=== PATIENT | female | born 1950 | race Caucasian/White ===

== ENCOUNTER 2022-07-16 22:09 | Inpatient (IN) | payer OTHER, MEDICAID ==
[~2022-07-16] VITALS: Ht 162.6 cm; Wt 90.7 kg
[~2022-07-16 22:09] MED LIST: ATEN-60; CIME1TAB7; HYDR-1421; METF-370; RANI15SY
[2022-07-16 23:51] LABS: Basophils # (auto) 0.1 10 ^3/uL (0-0.2); Basophils % (auto) 1.1 % (0.0-2.0); Eosinophils # (auto) 0.2 10 ^3/uL (0-0.8); Eosinophils % (auto) 2.1 % (0.0-7.0); Hematocrit 33.2 % (36.0-46.0); Hemoglobin 10.3 g/dL (12.2-16.2); Lymphocytes # (auto) 1.9 10 ^3/uL (0.4-5.4); Mean Corpuscular Hemoglobin 27.1 pg (28.0-32.0); Mean Corpuscular Volume 87.3 fL (80.0-100.0); Monocytes # (auto) 0.4 10 ^3/uL (0-1.3); Monocytes % (auto) 5.5 % (0.0-12.0); Neutrophils # (auto) 5.3 10 ^3/uL (1.6-8.6); Neutrophils % (auto) 67.3 % (37.0-80.0); White Blood Cell 7.8 10^3/uL (4.4-10.8)
[2022-07-16 23:59] LABS: Albumin 3.3 g/dL (3.4-5.0); BUN/Creatinine Ratio 13.9; Calcium 9.6 mg/dL (8.5-10.1); Magnesium 2.2 mg/dL (1.6-2.6)
[2022-07-17 00:01] LABS: INR 0.94 (0.9-1.15); Partial Thromboplastin Time 30.5 sec (24.6-33.4)
[2022-07-17 00:02] LABS: Bilirubin, Total 0.2 mg/dL (0.2-1.0); Total Protein 7.1 g/dL (6.4-8.2)
[2022-07-17] MEDS ORDERED: ENOXAPARIN SOD 100 MG/1 ML SYRINGE SC ONE ×2 (00:45→05:30)
[2022-07-17] MEDS ORDERED: NITROGLYCERIN 0.4 MG SL TAB SL PRN (01:15)
[2022-07-17] MEDS ORDERED: ACETAMINOPHEN 325 MG TAB PO PRN (01:15)
[2022-07-17] MEDS ORDERED: DEXTROSE (50%) 50ML SYRG IV PRN (01:15)
[2022-07-17] MEDS ORDERED: MORPHINE SULFATE INJ 2 MG/ml SYRG IV PRN (01:15)
[2022-07-17 03:08] LABS: Urine Bacteria NONE SEEN /hpf (None Seen); Urine Blood Negative /uL (Negative); Urine Hyaline Cast FEW /lpf (0 - 2); Urine Specific Gravity 1.017 (1.001-1.035); Urine WBC 1 /hpf (0 - 5)
[2022-07-17] MEDS: InsuLIN REG 1unit/0.01ml Soln (100units/ml) SC SCH ×4 (06:00→23:37)
[2022-07-17] MEDS: ACCU-CHEK COMFORT CURVE STRIP VI SCH ×4 (06:07→23:36)
[2022-07-17] MEDS: LEVOTHYROXINE SODIUM 88 MCG TAB PO SCH (06:11)
[2022-07-17] MEDS: ASPirin 81 mg TAB PO SCH (08:27)
[2022-07-17] MEDS: TICAGRELOR 90 MG TAB PO SCH ×2 (08:27→21:26)
[2022-07-17] MEDS: METOPROLOL SUCCINATE XL 50 MG TAB PO SCH (08:28)
[2022-07-17] MEDS: LOSARTAN POTASSIUM 50 MG TAB PO SCH (08:28)
[2022-07-17] MEDS: PANTOPRAZOLE 40 MG TAB PO SCH (08:28)
[2022-07-17] MEDS: HYDROcodone-ACET 5/325MG TAB PO PRN ×2 (10:23→17:41)
[2022-07-17] MEDS ORDERED: amLODIPine BESYLATE 5 MG TAB PO ONE (11:45)
[2022-07-17] MEDS: MORPHINE SULFATE INJ 2 MG/ml SYRG IV PRN ×2 (14:39→21:38)
[2022-07-17] MEDS: ONDANSETRON HCL 4 MG/2 ML VIAL IV PRN ×2 (14:39→21:38)
[2022-07-17 17:00] VITALS: BP 100/43
[2022-07-17 20:00] VITALS: BP 108/31
[2022-07-17] MEDS: ATORVASTATIN 20 MG TAB PO SCH (21:26)
[2022-07-17 22:00] VITALS: BP 108/31
[2022-07-18 05:00] VITALS: BP 109/56
[2022-07-18] MEDS: ACCU-CHEK COMFORT CURVE STRIP VI SCH ×3 (05:47→18:23)
[2022-07-18] MEDS: InsuLIN REG 1unit/0.01ml Soln (100units/ml) SC SCH ×4 (05:48→23:15)
[2022-07-18 06:21] LABS: Basophils # (auto) 0.1 10 ^3/uL (0-0.2); Eosinophils # (auto) 0.4 10 ^3/uL (0-0.8); Lymphocytes # (auto) 2.6 10 ^3/uL (0.4-5.4); Neutrophils # (auto) 3.8 10 ^3/uL (1.6-8.6)
[2022-07-18 06:23] LABS: Basophils % (auto) 1.1 % (0.0-2.0); Eosinophils % (auto) 5.2 % (0.0-7.0); Hematocrit 29.6 % (36.0-46.0); Hemoglobin 9.4 g/dL (12.2-16.2); Lymphocytes % (auto) 35.1 % (10.0-50.0); Mean Corpuscular Hgb Conc. 31.9 g/dL (32.0-36.0); Mean Corpuscular Volume 84.6 fL (80.0-100.0); Monocytes # (auto) 0.6 10 ^3/uL (0-1.3); Monocytes % (auto) 7.4 % (0.0-12.0); Neutrophils % (auto) 51.2 % (37.0-80.0); Nucleated Red Blood Cells % 0.3 %; Red Cell Distribution Width 17.5 % (11.8-14.3); White Blood Cell 7.5 10^3/uL (4.4-10.8)
[2022-07-18 06:26] LABS: Potassium 4.5 mmol/L (3.5-5.1)
[2022-07-18 06:33] LABS: Albumin 3.2 g/dL (3.4-5.0); BUN/Creatinine Ratio 15.4; Bilirubin, Total 0.4 mg/dL (0.2-1.0); Calcium 9.9 mg/dL (8.5-10.1)
[2022-07-18] MEDS: LEVOTHYROXINE SODIUM 88 MCG TAB PO SCH (06:58)
[2022-07-18 08:00] VITALS: BP 135/58
[2022-07-18 09:00] VITALS: BP 136/58
[2022-07-18] MEDS: amLODIPine BESYLATE 5 MG TAB PO SCH (09:12)
[2022-07-18] MEDS: LOSARTAN POTASSIUM 50 MG TAB PO SCH (09:12)
[2022-07-18] MEDS: TICAGRELOR 90 MG TAB PO SCH ×2 (09:12→23:56)
[2022-07-18] MEDS: METOPROLOL SUCCINATE XL 50 MG TAB PO SCH (09:13)
[2022-07-18] MEDS: PANTOPRAZOLE 40 MG TAB PO SCH (09:13)
[2022-07-18] MEDS: MORPHINE SULFATE INJ 2 MG/ml SYRG IV PRN (09:19)
[2022-07-18] MEDS: ASPirin 81 mg TAB PO SCH (10:00)
[2022-07-18 13:00] VITALS: BP 99/59
[2022-07-18] MEDS ORDERED: CHOL20007 OR (14:58)
[2022-07-18] MEDS ORDERED: LEVO88TA4 PO (14:58)
[2022-07-18] MEDS ORDERED: ASPI-543 PO (14:58)
[2022-07-18] MEDS ORDERED: HYDR25TA4 PO (14:58)
[2022-07-18] MEDS ORDERED: GLIP5TAB12 PO (14:58)
[2022-07-18] MEDS ORDERED: AMIT1TAB34 PO (14:58)
[2022-07-18] MEDS ORDERED: LOSA-69 PO (14:58)
[2022-07-18] MEDS ORDERED: CEL100T PO (14:58)
[2022-07-18] MEDS ORDERED: ATOR-47 PO (14:58)
[2022-07-18] MEDS ORDERED: TICA90TA PO (14:58)
[2022-07-18] MEDS ORDERED: ALLO100T PO (14:58)
[2022-07-18] MEDS ORDERED: SITA50TA28 PO (14:58)
[2022-07-18] MEDS ORDERED: METO25TA93 PO (14:58)
[2022-07-18] MEDS ORDERED: MAGN400T40 PO (14:58)
[2022-07-18] MEDS ORDERED: OMEP20TA PO (14:58)
[2022-07-18 17:00] VITALS: BP 115/56
[2022-07-18 22:00] VITALS: BP 118/52
[2022-07-18] MEDS: HYDROcodone-ACET 5/325MG TAB PO PRN (23:32)
[2022-07-19] MEDS: ACCU-CHEK COMFORT CURVE STRIP VI SCH ×5 (00:12→22:18)
[2022-07-19] MEDS: ATORVASTATIN 20 MG TAB PO SCH ×2 (00:12→22:18)
[2022-07-19 05:00] VITALS: BP 104/56
[2022-07-19] MEDS: LEVOTHYROXINE SODIUM 88 MCG TAB PO SCH (06:20)
[2022-07-19] MEDS: HYDROcodone-ACET 5/325MG TAB PO PRN ×2 (06:20→22:18)
[2022-07-19] MEDS: InsuLIN REG 1unit/0.01ml Soln (100units/ml) SC SCH ×4 (06:38→22:29)
[2022-07-19 09:00] VITALS: BP 104/55
[2022-07-19] MEDS: ASPirin 81 mg TAB PO SCH (09:07)
[2022-07-19] MEDS: amLODIPine BESYLATE 5 MG TAB PO SCH (09:08)
[2022-07-19] MEDS: PANTOPRAZOLE 40 MG TAB PO SCH (09:08)
[2022-07-19] MEDS: LOSARTAN POTASSIUM 50 MG TAB PO SCH (09:09)
[2022-07-19] MEDS: METOPROLOL SUCCINATE XL 50 MG TAB PO SCH (09:09)
[2022-07-19] MEDS: TICAGRELOR 90 MG TAB PO SCH ×2 (10:00→22:17)
[2022-07-19 13:00] VITALS: BP 122/53
[2022-07-19 17:00] VITALS: BP 110/59
[2022-07-19 22:00] VITALS: BP 142/69
[2022-07-20 05:00] VITALS: BP 135/57
[2022-07-20] MEDS: InsuLIN REG 1unit/0.01ml Soln (100units/ml) SC SCH ×2 (06:00→11:48)
[2022-07-20] MEDS: LEVOTHYROXINE SODIUM 88 MCG TAB PO SCH (07:05)
[2022-07-20] MEDS: ACCU-CHEK COMFORT CURVE STRIP VI SCH ×2 (07:05→11:47)
[2022-07-20] MEDS: HYDROcodone-ACET 5/325MG TAB PO PRN (07:06)
[2022-07-20 09:00] VITALS: BP 127/70
[2022-07-20] MEDS: METOPROLOL SUCCINATE XL 50 MG TAB PO SCH (09:12)
[2022-07-20] MEDS: ASPirin 81 mg TAB PO SCH (09:13)
[2022-07-20] MEDS: LOSARTAN POTASSIUM 50 MG TAB PO SCH (09:13)
[2022-07-20] MEDS: PANTOPRAZOLE 40 MG TAB PO SCH (09:14)
[2022-07-20] MEDS: TICAGRELOR 90 MG TAB PO SCH (11:50)
[2022-07-20 13:00] VITALS: BP 138/62
[2022-07-20 16:04] VITALS: BP 138/62
== END 2022-07-20 16:32 | disposition home or self-care (01) | DRG 281 ==
LOC: ER 22:09 → EDBD 22:09 → EDSEX 22:09 → TELE 07-17 01:11 → TELE-EAST 07-17 17:12
PROVIDERS: ADMIT Nurse Practitioner; ATTEND Internal Medicine Nephrology
DX: I21.4 Non-ST elevation (NSTEMI) myocardial infarction (principal); E44.1 Mild protein-calorie malnutrition; E11.22 Type 2 diabetes mellitus with diabetic chronic kidney disease; E78.5 Hyperlipidemia, unspecified; F17.210 Nicotine dependence, cigarettes, uncomplicated; I12.9 Hypertensive chronic kidney disease with stage 1 through stage 4 chronic kidney disease, or unspecified chronic kidney disease; M19.90 Unspecified osteoarthritis, unspecified site; N18.9 Chronic kidney disease, unspecified; I95.9 Hypotension, unspecified; Z20.822 Contact with and (suspected) exposure to COVID-19; Z96.651 Presence of right artificial knee joint; I25.10 Atherosclerotic heart disease of native coronary artery without angina pectoris; S09.90XA Unspecified injury of head, initial encounter; W18.39XA Other fall on same level, initial encounter; Y93.89 Activity, other specified; Z90.710 Acquired absence of both cervix and uterus; Y92.89 Other specified places as the place of occurrence of the external cause; Y99.8 Other external cause status; Z68.31 Body mass index [BMI] 31.0-31.9, adult
CPT/HCPCS: 36415; 70450; 71045; 72170; 73560; 78582; 80053; 81001; 82962; 83735; 83880; 84484; 85025; 85379; 85610; 85730; 93005; 93306; 93970; 96372; 96374; 96375; 96376; 99291; G0378; J1815; J2405

== ENCOUNTER 2022-07-25 12:47 | Emergency (ER) | payer OTHER, MEDICAID ==
[~2022-07-25] VITALS: Ht 162.6 cm; Wt 75.0 kg
[~2022-07-25 12:47] MED LIST changes: +ALLO100T PO; +AMIT1TAB34 PO; +ASPI-543 PO; -ATEN-60; +ATOR-47 PO; +CHOL20007 OR; -CIME1TAB7; +GLIP5TAB12 PO; +LEVO88TA4 PO; +LOSA-69 PO; +METO25TA93 PO; +OMEP20TA PO; -RANI15SY; +SITA50TA28 PO; +TICA90TA PO
[2022-07-25 14:25] LABS: Albumin 3.8 g/dL (3.4-5.0); Calcium 9.5 mg/dL (8.5-10.1); Potassium 3.8 mmol/L (3.5-5.1)
[2022-07-25 14:30] LABS: Bilirubin, Total 0.4 mg/dL (0.2-1.0); Total Protein 7.2 g/dL (6.4-8.2)
[2022-07-25 14:42] LABS: Basophils # (auto) 0.1 10 ^3/uL (0-0.2); Basophils % (auto) 1.6 % (0.0-2.0); Eosinophils # (auto) 0.2 10 ^3/uL (0-0.8); Eosinophils % (auto) 2.7 % (0.0-7.0); Hematocrit 33.9 % (36.0-46.0); Hemoglobin 10.7 g/dL (12.2-16.2); Lymphocytes # (auto) 1.4 10 ^3/uL (0.4-5.4); Lymphocytes % (auto) 21.1 % (10.0-50.0); Mean Corpuscular Hemoglobin 26.4 pg (28.0-32.0); Mean Corpuscular Hgb Conc. 31.5 g/dL (32.0-36.0); Mean Corpuscular Volume 84.1 fL (80.0-100.0); Monocytes # (auto) 0.3 10 ^3/uL (0-1.3); Monocytes % (auto) 4.6 % (0.0-12.0); Neutrophils # (auto) 4.7 10 ^3/uL (1.6-8.6); Nucleated Red Blood Cells % 0.1 %; Red Blood Cells 4.03 10^6/uL (4.0-5.20); Red Cell Distribution Width 18.2 % (11.8-14.3); White Blood Cell 6.7 10^3/uL (4.4-10.8)
[2022-07-25 18:31] VITALS: BP 156/79
== END 2022-07-25 15:21 | disposition home or self-care (01) ==
LOC: EDBD 12:47 → EDUNIT# 12:47 → ER 12:47
DX: S09.8XXA Other specified injuries of head, initial encounter (principal); E11.9 Type 2 diabetes mellitus without complications; E78.5 Hyperlipidemia, unspecified; I10 Essential (primary) hypertension; Z90.710 Acquired absence of both cervix and uterus; W01.0XXA Fall on same level from slipping, tripping and stumbling without subsequent striking against object, initial encounter; Y93.89 Activity, other specified; Y92.090 Kitchen in other non-institutional residence as the place of occurrence of the external cause; Y99.8 Other external cause status
CPT/HCPCS: 36415; 70450; 70486; 80053; 84484; 85025; 93005

== ENCOUNTER 2023-05-09 16:36 | Emergency (ER) | payer OTHER, MEDICAID ==
[~2023-05-09] VITALS: Ht 162.6 cm; Wt 80.0 kg
[~2023-05-09 16:36] MED LIST changes: +AMIT10TA12 PO; -AMIT1TAB34 PO; -LOSA-69 PO; +LOSA50TA46 PO
[2023-05-09] MEDS ORDERED: SODIUM CHLORIDE 0.9% 500 ML IV ONE (17:30)
[2023-05-09 17:47] LABS: Basophils # (auto) 0.1 10 ^3/uL (0-0.2); Basophils % (auto) 0.9 % (0.0-2.0); Eosinophils # (auto) 0.2 10 ^3/uL (0-0.8); Eosinophils % (auto) 2.5 % (0.0-7.0); Hematocrit 31.9 % (36.0-46.0); Hemoglobin 10.4 g/dL (12.2-16.2); Lymphocytes # (auto) 2.3 10 ^3/uL (0.4-5.4); Mean Corpuscular Hemoglobin 27.7 pg (28.0-32.0); Mean Corpuscular Hgb Conc. 32.5 g/dL (32.0-36.0); Mean Corpuscular Volume 85.2 fL (80.0-100.0); Monocytes # (auto) 0.5 10 ^3/uL (0-1.3); Monocytes % (auto) 5.9 % (0.0-12.0); Neutrophils % (auto) 65.7 % (37.0-80.0); Red Blood Cells 3.75 10^6/uL (4.0-5.20); Red Cell Distribution Width 15.8 % (11.8-14.3); White Blood Cell 9.1 10^3/uL (4.4-10.8)
[2023-05-09 18:04] LABS: Albumin 3.4 g/dL (3.4-5.0); BUN/Creatinine Ratio 13.4 (10.0-20.0); Calcium 8.9 mg/dL (8.5-10.1); Potassium 3.6 mmol/L (3.5-5.1)
[2023-05-09 18:07] LABS: Bilirubin, Total 0.3 mg/dL (0.2-1.0)
[2023-05-09] MEDS ORDERED: LOPERAMIDE HCL 2 MG CAP/TAB PO ONE (19:30)
[2023-05-09] MEDS ORDERED: MECLIZINE HCL 25 MG TAB PO ONE (20:45)
[2023-05-09] MEDS ORDERED: metroNIDAZOLE 500 MG TAB PO ONE (20:45)
[2023-05-09] MEDS ORDERED: METR-344 PO (20:54)
[2023-05-09] MEDS ORDERED: LOP2C PO (20:54)
[2023-05-09] MEDS ORDERED: MECL1TAB42 PO (20:54)
[2023-05-09] MEDS ORDERED: SODIUM CHLORIDE 0.9% 1,000 ML IV ONE (21:00)
[2023-05-09 23:30] VITALS: BP 167/64
== END 2023-05-10 00:19 | disposition home or self-care (01) ==
LOC: ER 16:36 → EDBD 16:36 → ER 05-10 00:12
DX: E86.0 Dehydration (principal); R19.7 Diarrhea, unspecified; E11.9 Type 2 diabetes mellitus without complications; I10 Essential (primary) hypertension; K21.9 Gastro-esophageal reflux disease without esophagitis; Z95.5 Presence of coronary angioplasty implant and graft; Z90.710 Acquired absence of both cervix and uterus
CPT/HCPCS: 36415; 70450; 71045; 80053; 83880; 84484; 85025; 85610; 85730; 93005; 96360; 96361; 99285; J7030; J8597

== ENCOUNTER 2024-08-11 16:06 | Inpatient (IN) | payer OTHER, MEDICAID ==
[~2024-08-11] VITALS: Ht 162.6 cm; Wt 83.0 kg
[~2024-08-11 16:06] MED LIST changes: -GLIP5TAB12 PO; +GLIP5TAB21 PO; +LOPE2CAP16 PO; +LOSA-534 PO; -LOSA50TA46 PO; +MECL1TAB42 PO; +METR-344 PO
[2024-08-11 17:32] LABS: Basophils # (auto) 0.1 10 ^3/uL (0-0.2); Basophils % (auto) 1.5 % (0.0-2.0); Eosinophils # (auto) 0.3 10 ^3/uL (0-0.8); Eosinophils % (auto) 3.2 % (0.0-7.0); Hematocrit 36.6 % (36.0-46.0); Hemoglobin 12.1 g/dL (12.2-16.2); Lymphocytes # (auto) 1.7 10 ^3/uL (0.4-5.4); Lymphocytes % (auto) 18.7 % (10.0-50.0); Mean Corpuscular Hemoglobin 27.8 pg (28.0-32.0); Mean Corpuscular Hgb Conc. 33.1 g/dL (32.0-36.0); Mean Corpuscular Volume 83.9 fL (80.0-100.0); Monocytes # (auto) 0.4 10 ^3/uL (0-1.3); Monocytes % (auto) 4.8 % (0.0-12.0); Neutrophils # (auto) 6.6 10 ^3/uL (1.6-8.6); Neutrophils % (auto) 71.8 % (37.0-80.0); Nucleated Red Blood Cells % 0.1 %; Platelet Count (auto) 210 10^3/uL (140-450); Red Blood Cells 4.36 10^6/uL (4.0-5.20); Red Cell Distribution Width 15.3 % (11.8-14.3); White Blood Cell 9.1 10^3/uL (4.4-10.8)
[2024-08-11 17:50] LABS: Alanine Aminotransferase 16 U/L (7-40); Albumin 4.6 g/dL (3.2-4.8); Alkaline Phosphatase 123 U/L (46-116); Anion Gap 8 (5-15); Aspartate Aminotransferase 11 U/L (13-40); BUN/Creatinine Ratio 9.5 (10.0-20.0); Blood Urea Nitrogen 19 mg/dL (9-23); Calcium 9.8 mg/dL (8.7-10.4); Carbon Dioxide 28 mmol/L (20-30); Chloride 103 mmol/L (98-107); Glucose 201 mg/dL (74-106); Potassium 3.8 mmol/L (3.5-5.1); Sodium 139 mmol/L (136-145)
[2024-08-11 17:51] LABS: Bilirubin, Total 0.4 mg/dL (0.2-1.0); Total Protein 6.8 g/dL (5.7-8.2)
[2024-08-11 18:14] LABS: INR 1.05 (0.9-1.15); Partial Thromboplastin Time 26.8 SEC (24.5-34.5); Prothrombin Time 11.1 sec (9.3-11.8)
[2024-08-11] MEDS: ASPirin 325 MG TAB PO ONE (18:15)
[2024-08-11] MEDS: NITROGLYCERIN 0.4 MG SL TAB SL ONE (18:15)
[2024-08-11 18:43] LABS: Base Excess -1.9 mmol/L (-2.0-3.0)
[2024-08-11 19:17] LABS: Urine Bacteria FEW /hpf (None Seen); Urine Blood Negative /uL (Negative); Urine Clarity Turbid (Clear); Urine Color Light-Orange (Yellow); Urine Mucus FEW (None Seen); Urine Protein, UAD TRACE (Negative); Urine Specific Gravity 1.015 (1.001-1.035); Urine Urobilinogen Normal (Negative); Urine WBC 20 /hpf (0 - 5); Urine pH 5.5 (5.0-9.0)
[2024-08-11] MEDS: SODIUM CHLORIDE 0.9% 1,000 ML IV ONE (21:49)
[2024-08-11] MEDS: cefTRIAXone 1GM/50ML D5W 50 ML IV ONE (21:56)
[2024-08-11] MEDS ORDERED: DEXTROSE (50%) 50ML SYRG IV PRN (23:15)
[2024-08-11 23:28] LABS: Alanine Aminotransferase 12 U/L (7-40); Albumin 4.8 g/dL (3.2-4.8); Alkaline Phosphatase 122 U/L (46-116); Anion Gap 8 (5-15); Aspartate Aminotransferase 13 U/L (13-40); BUN/Creatinine Ratio 7.7 (10.0-20.0); Bilirubin, Total 0.3 mg/dL (0.2-1.0); Blood Urea Nitrogen 14 mg/dL (9-23); Calcium 10.3 mg/dL (8.7-10.4); Carbon Dioxide 23 mmol/L (20-30); Chloride 105 mmol/L (98-107); Glucose 127 mg/dL (74-106); Potassium 3.6 mmol/L (3.5-5.1); Sodium 136 mmol/L (136-145); Total Protein 7.5 g/dL (5.7-8.2)
[2024-08-11 23:53] LABS: Amphetamine Screen, Urine Neg (NEGATIVE); Barbiturate Scree,Urine Neg (NEGATIVE); Benzodiazephine Screen, Urine Neg (NEGATIVE); Cocaine Screen, Urine Neg (NEGATIVE)
[2024-08-11 23:54] LABS: Cannabinoid Screen, Urine Neg (NEGATIVE); Opiate Scree,Urine Pos (NEGATIVE); Phencyclidine Screen, Urine Neg (NEGATIVE)
[2024-08-12] VITALS (9 sets, daily range): BP systolic 125–149; BP diastolic 58–84; PULSE 74–89; RESP 16–20; TEMP 97.8–98.8; O2SAT 94–100
[2024-08-12] MEDS: ACCU-CHEK COMFORT CURVE STRIP VI SCH (00:46)
[2024-08-12] MEDS: InsuLIN REG 1unit/0.01ml Soln (100units/ml) SC SCH (00:56)
[2024-08-12 02:16] LABS: COVID19 ANTIGEN SOFIA FIA NEGATIVE (NEGATIVE); Rapid Influenza A Negative (Negative); Rapid Influenza B Negative (Negative)
[2024-08-12] MEDS: ASPirin-EC 81 mg tab PO SCH (09:40)
[2024-08-12] MEDS: cefTRIAXone 1GM/50ML D5W 50 ML IV SCH (09:41)
[2024-08-12] MEDS: METOPROLOL SUCCINATE XL 50 MG TAB PO SCH (09:41)
[2024-08-12] MEDS: HYDROcodone-ACET 5/325MG TAB PO PRN (09:45)
[2024-08-12] MEDS ORDERED: PANTOPRAZOLE 40 MG TAB PO SCH (10:00)
[2024-08-12] MEDS ORDERED: PATIENTS OWN MEDICATION (Omeprazole (Gnp Omeprazole) 1 TAB) PO SCH (10:00)
[2024-08-12] MEDS ORDERED: METOPROLOL SUCCINATE XL 50 MG TAB PO SCH (10:00)
[2024-08-12] MEDS ORDERED: PATIENTS OWN MEDICATION (Atorvastatin Calcium 1 TAB) PO SCH (10:00)
[2024-08-12] MEDS ORDERED: PATIENTS OWN MEDICATION (Metoprolol Succinate (Metoprolol Succinate Er) 1 TAB) PO SCH (10:00)
[2024-08-12] MEDS ORDERED: LOSARTAN POTASSIUM 50 MG TAB PO SCH (10:00)
[2024-08-12] MEDS ORDERED: ASPirin 81 mg TAB PO SCH (10:00)
[2024-08-12] MEDS: AMITRIPTYLINE HCL 10 MG TAB PO SCH (21:43)
[2024-08-12] MEDS ORDERED: ATORVASTATIN 20 MG TAB PO SCH ×2 (22:00)
[2024-08-12] MEDS: AMITRIPTYLINE HCL 25 MG TAB PO SCH (22:39)
[2024-08-13 05:00] VITALS: BP 135/65; PULSE 68; RESP 20; TEMP 97.8; O2SAT 100
[2024-08-13] MEDS: PANTOPRAZOLE 40 MG TAB PO SCH (05:47)
[2024-08-13] MEDS: LEVOTHYROXINE SODIUM 88 MCG TAB PO SCH (05:47)
[2024-08-13 08:00] VITALS: PULSE 87; RESP 16; O2SAT 95
[2024-08-13 08:19] LABS: Basophils # (auto) 0.1 10 ^3/uL (0-0.2); Basophils % (auto) 1.1 % (0.0-2.0); Eosinophils # (auto) 0.2 10 ^3/uL (0-0.8); Eosinophils % (auto) 4.5 % (0.0-7.0); Hematocrit 34.9 % (36.0-46.0); Hemoglobin 11.7 g/dL (12.2-16.2); Lymphocytes # (auto) 1.7 10 ^3/uL (0.4-5.4); Lymphocytes % (auto) 31.1 % (10.0-50.0); Mean Corpuscular Hemoglobin 27.7 pg (28.0-32.0); Mean Corpuscular Hgb Conc. 33.6 g/dL (32.0-36.0); Mean Corpuscular Volume 82.4 fL (80.0-100.0); Monocytes # (auto) 0.3 10 ^3/uL (0-1.3); Monocytes % (auto) 5.7 % (0.0-12.0); Neutrophils # (auto) 3.1 10 ^3/uL (1.6-8.6); Neutrophils % (auto) 57.6 % (37.0-80.0); Nucleated Red Blood Cells % 0.2 %; Platelet Count (auto) 176 10^3/uL (140-450); Red Blood Cells 4.23 10^6/uL (4.0-5.20); Red Cell Distribution Width 15.1 % (11.8-14.3); White Blood Cell 5.4 10^3/uL (4.4-10.8)
[2024-08-13 08:38] LABS: Albumin 4.3 g/dL (3.2-4.8); Alkaline Phosphatase 104 U/L (46-116); Anion Gap 8 (5-15); Aspartate Aminotransferase < 8 U/L (13-40); BUN/Creatinine Ratio 10.2 (10.0-20.0); Bilirubin, Total 0.2 mg/dL (0.2-1.0); Blood Urea Nitrogen 13 mg/dL (9-23); Calcium 10.4 mg/dL (8.7-10.4); Carbon Dioxide 27 mmol/L (20-31); Chloride 105 mmol/L (98-107); Glucose 123 mg/dL (74-106); Potassium 3.6 mmol/L (3.5-5.1); Sodium 140 mmol/L (136-145); Total Protein 6.6 g/dL (5.7-8.2)
[2024-08-13 08:40] LABS: Alanine Aminotransferase 9 U/L (7-40)
[2024-08-13 09:12] VITALS: BP 125/66; PULSE 82; RESP 16; TEMP 97.9; O2SAT 95
[2024-08-13] MEDS: ENOXAPARIN SOD 30 MG/0.3 ML SYRINGE SC SCH (09:39)
[2024-08-13 13:00] VITALS: BP 128/63; PULSE 63; RESP 18; TEMP 98.1; O2SAT 94
[2024-08-13] MEDS ORDERED: CIPR-173 PO (15:25)
[2024-08-13 16:41] VITALS: BP 150/77; PULSE 95; RESP 18; TEMP 97.9; O2SAT 95
[2024-08-13 17:00] VITALS: BP 150/77; PULSE 95; RESP 18; TEMP 97.9; O2SAT 95
== END 2024-08-13 18:55 | disposition home or self-care (01) | DRG 689 ==
LOC: ER 16:06 → OVERFLOW 23:38 → WEST WING 23:38
PROVIDERS: ADMIT Internal Medicine Geriatric Medicine; ATTEND Emergency Medicine
DX: N30.00 Acute cystitis without hematuria (principal); N17.0 Acute kidney failure with tubular necrosis; I25.10 Atherosclerotic heart disease of native coronary artery without angina pectoris; E78.5 Hyperlipidemia, unspecified; F17.210 Nicotine dependence, cigarettes, uncomplicated; R09.02 Hypoxemia; E03.9 Hypothyroidism, unspecified; M79.7 Fibromyalgia; M10.9 Gout, unspecified; I25.5 Ischemic cardiomyopathy; Z96.659 Presence of unspecified artificial knee joint; R16.0 Hepatomegaly, not elsewhere classified; Z20.822 Contact with and (suspected) exposure to COVID-19; I12.9 Hypertensive chronic kidney disease with stage 1 through stage 4 chronic kidney disease, or unspecified chronic kidney disease; E11.22 Type 2 diabetes mellitus with diabetic chronic kidney disease; N18.30 Chronic kidney disease, stage 3 unspecified; Z79.82 Long term (current) use of aspirin; Z79.899 Other long term (current) drug therapy; Z79.891 Long term (current) use of opiate analgesic; Z90.710 Acquired absence of both cervix and uterus; Z87.11 Personal history of peptic ulcer disease; Z79.02 Long term (current) use of antithrombotics/antiplatelets; Z79.84 Long term (current) use of oral hypoglycemic drugs; I25.2 Old myocardial infarction; Z80.0 Family history of malignant neoplasm of digestive organs; Z85.038 Personal history of other malignant neoplasm of large intestine
CPT/HCPCS: 36415; 36600; 71045; 71250; 80053; 80307; 81001; 82105; 82378; 82805; 82962; 83735; 83880; 84484; 85025; 85379; 85610; 85730; 87086; 87426; 87804; 93005; 93306; 93970; G0378; J1815

== ENCOUNTER 2025-06-21 08:02 | Day surgery (SDC) | payer OTHER, MEDICAID ==
[2025-06-21] VITALS (8 sets, daily range): BP systolic 123–135; BP diastolic 63–75; PULSE 76–82; RESP 12–14; TEMP 98.1; O2SAT 97–99
[~2025-06-21] VITALS: Ht 162.6 cm; Wt 81.2 kg
[~2025-06-21 08:02] MED LIST changes: -ATOR-47 PO; +ATOR40TA52 PO; +CHOL100047 PO; -CHOL20007 OR; -HYDR-1421; +LEVO112T4 PO; -LEVO88TA4 PO; -LOPE2CAP16 PO; +MECL-90 PO; -MECL1TAB42 PO; -METF-370; -METO25TA93 PO; -METR-344 PO; -TICA90TA PO
[2025-06-21] MEDS: IODIXANOL 320MG/ML 100ML BTL IV ONE (09:18)
[2025-06-21] MEDS: VERAPAMIL 2.5MG/ML INJ 2ML VIAL IV ONE (09:26)
[2025-06-21] MEDS: ANGIOMAX 250 MG VIAL IV ONE (09:26)
[2025-06-21] MEDS: HEPARIN SODIUM (PORCINE) 5000 UNITS/ML 1ML VIAL ONE ×2 (09:26→11:02)
[2025-06-21] MEDS: fentaNYL CITRATE 100 MCG/2 ML VL ONE (09:27)
[2025-06-21] MEDS: SODIUM CHL 0.9% 0 ML ONE (09:27)
[2025-06-21] MEDS: LIDOCAINE 2%HCL (LOCAL ANESTH.) INJ 20ML MDV ONE (09:27)
[2025-06-21] MEDS: MIDAZOLAM HCL 2MG/2ML 2ml VIAL (1mg/ml) ONE (09:27)
[2025-06-21] MEDS: HEPARIN SODIUM (PORCINE) 5000 UNITS/ML 1ML VIAL IV ONE (10:45)
--- NOTE | 2025-06-21 10:51 | DVHOP2 ---
Operative Report Procedures performed: Left heart catheterization and bilateral coronary angiogram Moderate sedation Diagnosis: Patent stents in proximal and mid LAD. Pinched diagonals. Right posterolateral branch with 70% focal and 2nd right posterolateral branch (small vessel) with 80% focal lesion LVEDP: 13 mm Hg Cardiac suggestions for management: Optimized medical therapy Lifestyle and risk factor modifications Patient is considered cardiac-lugo, moderate risk patient for breast mass surgery Findings: LVEDP: 13 mm Hg There was no transaortic valve pressure gradient Left main: Left main was coming off the left sinus of Valsalva. It had mild disease. LAD: LAD was coming off the left main. D1 was a medium-sized vessel with 50% ostial lesion. D2 was a large sized vessel which came off of the stented portion of mid LAD with 80% ostial lesion. D3 was a small-sized vessel with 40% ostial lesion. There was a patent stent with 10% In-Stent stenosis in proximal LAD. There was a patent stent with up to 40% In-Stent stenosis in mid LAD. Distal LAD has a focal 50% lesion. LCX: Proximal LCX had 40% lesion. OM1 and OM2 were medium-sized vessels with mild disease. RCA: RCA was coming off the right sinus of Valsalva. It was the dominant vessel and provided RPDA/RPLS. Ostial RCA had 50% lesion. First posterolateral branch had 70% focal lesion. Second posterolateral branch was a small-sized vessel with 80% proximal lesion. Presentation: Patient is a 75-year-old female who has been followed the office with co-morbidities which include CKD, coronary artery disease and status post PCI, Ischemic cardiomyopathy, diabetes mellitus, hypertension, hyperlipidemia, history of hysterectomy, liver problems and small hiatal hernia. She was found to have breast cancer and was to go for lumpectomy. The echocardiogram of 2024 revealed ejection fraction of 60-65%, wall motion, trace TR ventricular systolic pressure. Nuclear stress test of May 2025 patient was abnormal and patient was sent for cardiac catheterization. Procedure: After obtaining informed consent, the patient was brought to label drier. She was prepped and draped in sterile fashion. 1 mg of Versed and 25 mcg of fentanyl were used for moderate sedation. Using Seldinger technique, the right radial artery was accessed and six [place] slender sheath was inserted into it. 2.5 mg of verapamil and 100 mcg of nitroglycerin were given as a cocktail into the right radial sheath. 4000 units of heparin was given peripherally. A five [place] tiger four diagnostic catheter was used to perform left heart catheterization (obtaining pressures) and bilateral coronary angiography. We did recognize the diseases in ostial diagonal (pinched vessels) and also PLB vessels. Compared to the old cardiac catheterization of 2021 the diseases had not changed. Decision was made to manage them medically. There was no dissec tion/hematoma/perforation. Total bleeding was less than 10 mL. Patient tolerated procedure with no complication. Right radial artery access site was managed by deploying a TR band. Fluoroscopy time: 1.6 minutes contrast: 15 mL of SandovalipaKENISHA Carrion MD Jun 21, 2025 10:51
== END 2025-06-21 13:05 | disposition home or self-care (01) ==
LOC: CATH 08:02
PROVIDERS: ATTEND Internal Medicine Cardiovascular Disease
DX: R94.39 Abnormal result of other cardiovascular function study (principal); I25.119 Atherosclerotic heart disease of native coronary artery with unspecified angina pectoris; I25.5 Ischemic cardiomyopathy; I12.9 Hypertensive chronic kidney disease with stage 1 through stage 4 chronic kidney disease, or unspecified chronic kidney disease; E11.22 Type 2 diabetes mellitus with diabetic chronic kidney disease; N18.9 Chronic kidney disease, unspecified; E78.5 Hyperlipidemia, unspecified; K44.9 Diaphragmatic hernia without obstruction or gangrene; F32.A Depression, unspecified; F17.210 Nicotine dependence, cigarettes, uncomplicated; Z79.82 Long term (current) use of aspirin; Z79.890 Hormone replacement therapy; Z79.899 Other long term (current) drug therapy; Z90.710 Acquired absence of both cervix and uterus; Z85.3 Personal history of malignant neoplasm of breast; Z95.5 Presence of coronary angioplasty implant and graft; Z98.51 Tubal ligation status; Z80.0 Family history of malignant neoplasm of digestive organs; Z82.49 Family history of ischemic heart disease and other diseases of the circulatory system
CPT/HCPCS: 93458; C1894; J1644; J2250; J3010; Q9967; 99152